=== PATIENT | male | born 1950 | race Caucasian/White ===

== ENCOUNTER 2018-05-13 13:27 | Emergency (ER) | payer MEDICAID, MEDICARE ==
[2018-05-13 13:27] VITALS: BMI 29.5
[2018-05-13 13:35] VITALS: TEMP 98; O2SAT 97
[2018-05-13] MEDS ORDERED: Sodium Chloride 0.9% 1,000 ML IV ONE (14:11)
[2018-05-13 14:38] LABS: BASO # 0.1 K/uL (0.0-0.2); BASO % 0.8 % (0.0-2.0); EOS # 0.1 K/uL (0.0-0.7); EOS % 0.9 % (0.0-4.0); HEMOGLOBIN 14.4 g/dL (12.0-18.0); LYMPH # 2.3 K/uL (1.0-4.3); LYMPH % 28.3 % (20.0-40.0); MEAN CELL VOLUME 92.8 fL (80.0-94.0); MEAN CORPUSCULAR HEMOGLOBIN 32.1 pg (27.0-31.0); MEAN CORPUSCULAR HGB CONC 34.6 g/dL (33.0-37.0); MEAN PLATELET VOLUME 8.4 fL (7.2-11.7); MONO # 0.7 K/uL (0.0-0.8); MONO % 8.2 % (0.0-10.0); NEUT # 4.9 K/uL (1.8-7.0); NEUT % 61.8 % (50.0-75.0); NRBC % 0.2 % (0.0-2.0); RBC 4.49 Mil/uL (4.40-5.90); RED CELL DISTRIBUTION WIDTH 13.2 % (11.5-14.5)
--- NOTE | 2018-05-13 14:50 | RAD ---
Date of service: 05/13/2018 HISTORY: abd pain COMPARISON: 08/01/2014 TECHNIQUE: Chest PA and lateral FINDINGS: LUNGS: Suboptimal inspiratory effort. Probable subsegmental atelectasis at right base. No emilee infiltrate. PLEURA: No significant pleural effusion identified. No pneumothorax apparent. CARDIOVASCULAR: No aortic atherosclerotic calcification present. Normal cardiac size. No pulmonary vascular congestion. OSSEOUS STRUCTURES: No significant abnormalities. VISUALIZED UPPER ABDOMEN: Normal. OTHER FINDINGS: None. IMPRESSION: No active disease.
[2018-05-13 14:54] LABS: SQUAMOUS EPITHIAL 1 /hpf (0-5); URINE BILIRUBIN NEGATIVE (NEGATIVE); URINE BLOOD NEGATIVE (NEGATIVE); URINE CLARITY Clear (Clear); URINE COLOR Yellow (YELLOW); URINE GLUCOSE (UA) NORMAL (Normal); URINE LEUKOCYTE ESTERASE NEG Leu/uL (Negative); URINE PROTEIN 1+ mg/dL (NEGATIVE); URINE UROBILINOGEN NORMAL mg/dL (0.2-1.0)
[2018-05-13 14:58] LABS: ALT/SGPT 35 U/L (21-72); AST/SGOT 34 U/L (17-59); BLOOD UREA NITROGEN 12 mg/dL (9-20); CALCIUM 8.9 mg/dl (8.6-10.4); GFR NON-AFRICAN AMERICAN > 60; LIPASE 90 U/L (23-300)
[2018-05-13 15:17] LABS: ALBUMIN 4.2 g/dL (3.5-5.0)
[2018-05-13 15:23] LABS: ALB/GLOB RATIO 1.1 (1.0-2.1)
--- NOTE | 2018-05-13 15:54 | C.PDOC ---
History Of Present Illness 68 y/o male presents to the ER complaining of epigastric abdominal pain which has been present for the past 4 days. Patient states that he had similar symptoms about 1 year ago and he was diagnosed with acid reflux. Patient reports that he was placed on medications (unknown) which he takes daily. He notes that he takes Excedrin several times per day without relief. Patient is also complaining of right arm pain that is not changed with movement or position. Denies having nausea, vomiting, diarrhea, changes in bm, fever, and chills. Of note, patient has history of right sided hemicolectomy. Time Seen by Provider: 05/13/18 13:57 Chief Complaint (Nursing): Abdominal Pain History Per: Patient History/Exam Limitations: no limitations Onset/Duration Of Symptoms: Days Current Symptoms Are (Timing): Still Present Severity: Moderate Past Medical History Reviewed: Historical Data, Nursing Documentation, Vital Signs Vital Signs: Last Vital Signs Temp 98 F 05/13/18 13:32 Pulse 105 H 05/13/18 13:32 Resp 16 05/13/18 13:32 BP 145/82 05/13/18 13:32 Pulse Ox 97 05/13/18 13:32 - Medical History PMH: HTN, Hypercholesterolemia, Migraine Denies: Chronic Kidney Disease Surgical History: Appendectomy, Tonsillectomy - [facility] Procedures ENDOSC POLYPECTOMY OF LG INTEST (01/19/15) INJECT/INFUSE NEC (07/21/14) LAPAROSCOPIC RIGHT HEMICOLECTOMY (08/03/14) Family History: States: No Known Family Hx - Social History Hx Tobacco Use: No Hx Alcohol Use: No Hx Substance Use: No - Immunization History Hx Tetanus Toxoid Vaccination: No Hx Influenza Vaccination: No Hx Pneumococcal Vaccination: No Review Of Systems Except As Marked, All Systems Reviewed And Found Negative. Constitutional: Negative for: Fever, Chills Gastrointestinal: Positive for: Abdominal Pain. Negative for: Nausea, Vomiting, Diarrhea Genitourinary: Negative for: Dysuria, Hematuria Physical Exam - Physical Exam Appears: Non-toxic, No Acute Distress Skin: Normal Color, Warm, Dry Head: Atraumatic, Normacephalic Eye(s): bilateral: Normal Inspection Nose: Normal Oral Mucosa: Moist Neck: Supple Chest: Symmetrical Cardiovascular: Rhythm Regular Respiratory: Normal Breath Sounds, No Rales, No Rhonchi, No Wheezing Gastrointestinal/Abdominal: Soft, No Tenderness, No Guarding, No Rebound Neurological/Psych: Oriented x3, Normal Speech ED Course And Treatment - Laboratory Results Result Diagrams: 05/13/18 14:27 05/13/18 14:27 Lab Interpretation: Normal ECG: Interpreted By Me ECG Rhythm: Sinus Rhythm (with left axis) ECG Interpretation: No Acute Changes O2 Sat by Pulse Oximetry: 97 (RA) Pulse Ox Interpretation: Normal - Radiology CXR: Interpreted by Me CXR Interpretation: Yes: No Acute Disease Reevaluation Time: 17:41 Reassessment Condition: Unchanged (Patient state he still having arm pain but is moving his arm freely and without restriction. He is unwilling to wait for the results of the ultrasound and wants discharge right now.) Medical Decision Making Medical Decision Making: Plan: --Labs --CXR --UA --US- Abdomen --IV Fluids --Toradol IV Disposition Counseled Patient/Family Regarding: Studies Performed, Diagnosis, Need For Followup, Rx Given - Disposition Referrals: Garcia Hamilton MD [Staff Provider] - Disposition: HOME/ ROUTINE Disposition Time: 17:42 Condition: STABLE Additional Instructions: Call you doctor for a follow up appointment as soon as possible. Prescriptions: Naproxen [Naprosyn] 1 tab PO BID PRN #25 tab PRN Reason: Pain Instructions: Muscle and Bone Pain (DC), Stomach Ache and Stomach Upset Forms: [facility] (N[place]ien) Print Language: GREEK - Clinical Impression Clinical Impression: Abdominal discomfort, Right arm pain - Scribe Statement The provider has reviewed the documentation as recorded by the Nitin Parker Provider Attestation: All medical record entries made by the Nitin were at my direction and personally dictated by me. I have reviewed the chart and agree that the record accurately reflects my personal performance of the history, physical exam, medical decision making, and the department course for this patient. I have also personally directed, reviewed, and agree with the discharge instructions and disposition.
--- NOTE | 2018-05-13 17:59 | US ---
Date of service: 05/13/2018 HISTORY: Abdominal pain COMPARISON: CT abdomen and pelvis from 08/02/2014. TECHNIQUE: Grayscale imaging was performed. FINDINGS: LIVER: Measures 17.2 cm. There is diffuse increased echogenicity of the liver parenchyma. No mass. No intrahepatic bile duct dilatation. GALLBLADDER: There are small mobile gallstones. No wall thickening, pericholecystic or positive sonographic Rogers's sign. COMMON BILE DUCT: Measures 4.0 mm. No stones. No dilatation. PANCREAS: Unremarkable as visualized. No mass. No ductal dilatation. RIGHT KIDNEY: Measures 10.0cm. Normal echogenicity. No calculus, mass, or hydronephrosis. There is a 2.9 x 3.0 x 2.0 cm simple cyst in the lower pole. LEFT KIDNEY: Measures 11.2cm. Normal echogenicity. No calculus, mass, or hydronephrosis. SPLEEN: Normal in size and contour. No mass. AORTA: No aneurysmal dilatation. IVC: Unremarkable. OTHER FINDINGS: None. IMPRESSION: Mild hepatomegaly. Fatty liver. Cholelithiasis. No biliary dilatation. 2.9 cm simple cyst in the lower pole of the right kidney.
[2018-05-13 18:09] VITALS: BP 138/83; PULSE 98; RESP 18
--- NOTE | 2018-05-14 22:10 | CARD ---
APPROVED REPORT Date of service: 05/13/2018 EKG Measurement Heart [id number] <Conclusion> Normal sinus rhythm Left axis deviation Abnormal ECG
== END 2018-05-13 17:55 | disposition home or self-care (01) ==
LOC: C.ER 13:27
DX: R10.13 Epigastric pain (principal); M79.601 Pain in right arm
CPT/HCPCS: 71046; 76700; 80053; 81001; 83690; 84484; 85025; 93005; 96361; 96374; 99285; J1885; J7030